=== PATIENT | male | born 1955 | race Caucasian/White ===

== ENCOUNTER → 2022-01-28 13:36 | Outpatient (BNVA) | payer MEDICARE, SELFPAY | PROVIDERS: Family Provider Family Medicine; Visit Provider Nurse Practitioner Family | DX: I96 Gangrene, not elsewhere classified (principal); S81.802A Unspecified open wound, left lower leg, initial encounter; X58.XXXA Exposure to other specified factors, initial encounter | CPT/HCPCS: 97597; 99213 ==

== ENCOUNTER → 2022-02-04 10:20 | Outpatient (BNVA) | payer MEDICARE, SELFPAY | PROVIDERS: Family Provider Family Medicine; Visit Provider Nurse Practitioner Family | DX: I96 Gangrene, not elsewhere classified (principal); L97.822 Non-pressure chronic ulcer of other part of left lower leg with fat layer exposed | CPT/HCPCS: 11042 ==

== ENCOUNTER → 2022-02-11 13:40 | Outpatient (BNVA) | payer MEDICARE, SELFPAY | PROVIDERS: Family Provider Family Medicine; Visit Provider Nurse Practitioner Family | DX: I96 Gangrene, not elsewhere classified (principal); L97.822 Non-pressure chronic ulcer of other part of left lower leg with fat layer exposed | CPT/HCPCS: 11042 ==

== ENCOUNTER → 2022-02-18 13:25 | Outpatient (BNVA) | payer MEDICARE, SELFPAY | PROVIDERS: Family Provider Family Medicine; Visit Provider Thoracic Surgery (Cardiothoracic Vascular Surgery) | DX: I96 Gangrene, not elsewhere classified (principal); L97.822 Non-pressure chronic ulcer of other part of left lower leg with fat layer exposed | CPT/HCPCS: 11042; A6021; A6212 ==

== ENCOUNTER 2022-02-25 01:00 | Outpatient (CLI) | payer MEDICARE, SELFPAY | END 2022-02-25 23:00 | disposition home or self-care (01) | LOC: RAD 03-16 14:58 | PROVIDERS: Family Provider Family Medicine; Visit Provider Physician Assistant | DX: I96 Gangrene, not elsewhere classified (principal); L97.822 Non-pressure chronic ulcer of other part of left lower leg with fat layer exposed | CPT/HCPCS: 11042; A6021 ==

== ENCOUNTER 2022-03-04 06:25 | Outpatient (CLI) | payer MEDICARE, SELFPAY ==
--- NOTE | 2022-03-04 06:45 | CT_ITS ---
WS: [id number] CT CHEST WITHOUT INTRAVENOUS CONTRAST HISTORY: COPD TECHNIQUE: Contiguous 5 mm axial imaging performed on the thorax. Coronal and sagittal reformats are submitted. All CT scans at [facility] use at least one of these dose optimization techniques: automated exposure control; mA and/or kV adjustment per patient size (includes targeted exams where dose is matched to clinical indication); or iterative reconstruction. CONTRAST: None DLP: 799.54 mGy.cm COMPARISON: CT 10/07/2013 Lungs and central airway: No pulmonary mass or nodules. No pneumonia. Pleura: Normal. No pleural effusion. Heart and pericardium: Normal size heart with no pericardial effusion. Mediastinum and lewis: Calcified benign lymph nodes in the mediastinum and hilar regions. Vessels: Mild atherosclerosis aorta. No aneurysm. Normal size pulmonary artery. Chest wall and lower neck: No soft tissue masses. Upper abdomen: Mild perinephric stranding. Mild hyperplasia of the adrenal glands. 8mm nodule RIGHT a drenal gland is probably an adenoma. Similar to the study from 2013. Prior cholecystectomy. Osseous structures: Mild increase in the thoracic kyphosis. Thoracic spondylosis. CT/CT chest wo con [id number] IMPRESSION: 1. No pulmonary mass, pneumonia or nodule. 2. Mild atherosclerosis aorta. 3. Stable small RIGHT adrenal adenoma.
== END 2022-03-04 06:26 | disposition home or self-care (01) ==
LOC: RAD 06:25
PROVIDERS: Family Provider Family Medicine; Visit Provider Physician Assistant
DX: J44.9 Chronic obstructive pulmonary disease, unspecified (principal); S81.812D Laceration without foreign body, left lower leg, subsequent encounter; L08.9 Local infection of the skin and subcutaneous tissue, unspecified; I70.0 Atherosclerosis of aorta; X58.XXXD Exposure to other specified factors, subsequent encounter
CPT/HCPCS: 11042; 71250; A6212

== ENCOUNTER → 2022-03-11 10:17 | Outpatient (BNVA) | payer MEDICARE, SELFPAY | PROVIDERS: Family Provider Family Medicine; Visit Provider Surgery | DX: L97.822 Non-pressure chronic ulcer of other part of left lower leg with fat layer exposed (principal) | CPT/HCPCS: 99212 ==

== ENCOUNTER → 2022-03-19 10:44 | Outpatient (BNVA) | payer MEDICARE, SELFPAY | PROVIDERS: Family Provider Family Medicine; PCP Physician Assistant; Visit Provider Internal Medicine | DX: I49.9 Cardiac arrhythmia, unspecified (principal); I49.1 Atrial premature depolarization; I49.3 Ventricular premature depolarization; I47.1 Supraventricular tachycardia | CPT/HCPCS: 93225 ==

== ENCOUNTER 2022-03-25 10:51 | Outpatient (CLI) | payer MEDICARE, SELFPAY ==
--- NOTE | 2022-03-25 | USCV_ITS ---
Ed Downey Age: 66 Gender: M : 1955 Exam Date: 03/25/2022 11:13 Ordering Phys: Karena Cesar Technologist: Alvin Aceves Exam Location: [facility] [place] Indication: sinus arrhythmia BP: 140 / 60 HR: 90 Rhythm: Other Technical Quality: Adequate MEASUREMENTS (Male / Female) Normal Values 2D ECHO LV Diastolic Diameter PLAX 4.8 cm 4.2 - 5.9 / 3.9 - 5.3 cm LV Systolic Diameter PLAX 3.3 cm IVS Diastolic Thickness 1.1 cm 0.6 - 1.0 / 0.6 - 0.9 cm IVS Systolic Thickness 1.2 cm LVPW Diastolic Thickness 1.2 cm 0.6 - 1.0 / 0.6 - 0.9 cm LVPW Systolic Thickness 1.6 cm LVOT Diameter 2.1 cm LV Ejection Fraction 2D Teich 58.6 % LV Ejection Fraction MOD 2C 59.1 % LV Ejection Fraction 2C AL 58.6 % LA Diameter 3.8 cm LA Width 3.9 cm LA Height 4.5 cm RA Width 4.2 cm RA Height 4.2 cm Aorta at Sinotubular Diameter 2.6 cm IVC Diameter 1.6 cm M-MODE Aortic Annulus Diameter 3.3 cm LA Ao Ratio MM 1.1 MV E Point Septal Separation 0.9 cm DOPPLER AV Peak Velocity 181.7 cm/s LVOT Peak Velocity 96.0 cm/s AV Area Cont Eq vti 2.0 cm squared AV Area Cont Eq pk 1.9 cm squared MV Peak Velocity 114.0 cm/s MV Area PHT 5.0 cm squared Mitral E to A Ratio 0.5 MV E' Velocity 37.0 cm/s Mitral E to LV E' Septal Ratio 7.1 TR Peak Velocity 275.6 cm/s TR Peak Gradient 30.4 mmHg TR Mean Velocity 226.5 cm/s TR Mean Gradient 20.8 mmHg TR Velocity Time Integral 68.9 cm Right Atrial Pressure 3.0 mmHg Pulmonary Artery Systolic Pressu 33.4 mmHg PV Peak Velocity 97.0 cm/s RV Acceleration Time 0.1 s RV Ejection Time 0.3 s RV AcT/ET 0.3 FINDINGS Left Ventricle Normal left ventricular size and systolic function, EF 65 %. No regional wall motion abnormalities. Grade I/IV diastolic dysfunction (abnormal relaxation filling pattern), normal to mildly elevated filling pressures. Right Ventricle Normal size ejection fraction Right Atrium Possibly of normal size Left Atrium Mildly increased left atrial size. Mitral Valve Trace mitral valve regurgitation. Aortic Valve Minimally thickened Tricuspid Valve No gross abnormality noted Pulmonic Valve Pulmonic valve not well visualized. Pericardium Normal pericardium without effusion. Aorta Normal ascending aorta dimension. IVC Inferior vena cava not visualized. CONCLUSIONS Normal left ventricular size and systolic function, EF 65 %. No regional wall motion abnormalities. Grade I/IV diastolic dysfunction (abnormal relaxation filling pattern), normal to mildly elevated filling pressures. Mildly increased left atrial size. Trace mitral valve regurgitation. Minimally thickened aortic valve There is no pericardial effusion. Technically difficult study because of the poor ultrasonic window. (Echo contrast - Optison was used to delineate the endocardium and to estimate the LV ejection fraction) Dr Juancho Jerez MD [facility] (Electronically Signed) Final Date: 25 March 2022 21:06 S
[2022-03-25] MEDS: perflutren protein-a microsphr 0.22 mg/mL SDV 3 mL IV (12:07)
== END 2022-03-25 10:52 | disposition home or self-care (01) ==
LOC: RAD 10:54
PROVIDERS: PCP Physician Assistant; Visit Provider Physician Assistant
DX: I49.8 Other specified cardiac arrhythmias (principal); I08.0 Rheumatic disorders of both mitral and aortic valves
CPT/HCPCS: C8929; Q9956

== ENCOUNTER 2022-05-26 09:21 | Outpatient (CLI) | payer MEDICARE, SELFPAY ==
[2022-05-26 09:48] VITALS: BMI 33.0
--- NOTE | 2022-05-26 09:58 | ECG_ITS ---
[facility] Test Date: 2022-05-26 Pat Name: Ed Downey Department: Room: Gender: Male Bonus Clerk: : 1955 Requested By: Karena Ruth Order Number: [id number] Abraham MD: Juancho Jerez M.D. Interpretive Statements NAME OF STUDY: LEXISCAN SESTAMIBI STRESS TEST INDICATION: Shortness of Breath, PROCEDURE: At the baseline, the EKG revealed normal sinus rhythm with frequent PVCs in the form of bigeminy. Poor R wave progression. Some nonspecific T wave changes. The baseline heart was 70 bpm with a blood pressue of 153/101 mm of Hg Lexiscan was infused over a period of 20 seconds. A total of 0.4 milligrams of Lexiscan was infused. The stress phase was continued for a total of 5 minutes. Heart rate at the end of the stress phase was 90 bpm with a blood pressure 133/74 mm of Hg. The EKG at the peak infusion revealed no significant changes except for the less frequent PVCs. Sestamibi was injected 20 seconds after the Lexiscan infusion. Heart rate at the end of the recovery phase was 85 bpm with a blood pressure of 145/82 mm of Hg. CONCLUSION: 1. Nonspecific EKG changes with the LexiScan infusion 2. No LexiScan induced chest pain or cardiac arrhythmia 3. Normal blood pressure and heart rate response 4. Sestamibi/sestamibi perfusion scan pending; see separate report. Electronically Signed On 05-26-2022 15:48:20 CDT by Juancho Jerez M.D. [id number]
--- NOTE | 2022-05-26 09:58 | NMCV_ITS ---
NM genia perf SPECT r/s* [id number] Ed Downey Age: 66 Gender: M : 1955 Exam Date: 05/26/2022 10:34 Ordering Phys: Karena Cesar Technologist: JOSE ANGEL Gonzalez Exam Location: [facility] Indications: SHORTNESS OF BREATH STRESS TEST [facility] IMAGE PROTOCOL Rest/Stress 1 Lexiscan Day Radiopharmaceutical Dose (mCi) Administration Site Administered by Rest: Tc-99m 11.0 IV JOSE ANGEL Avery Sestamibi Stress:Tc-99m 32.4 IV JOSE ANGEL Avery Sestamibi Rest: 26-May-2022 60 Discovery 630 Stress: 26-May-2022 30 Discovery 630 0.4mg Lexiscan. Images obtained in supine and prone position. SPECT RESULTS Technical Quality: Excellent Raw Data Analysis: Normal Image Corrections: No attenuation or motion correction applied Summed Stress Score: 3 Summed Rest Score: 2 Summed Difference Score: 1 PERFUSION FINDINGS Small to moderate area of slightly decreased tracer uptake was noted in the inferior wall with no significant reversibility. Small area of slightly decreased tracer uptake was noted in the apical anterior wall region with some reversibility FUNCTIONAL RESULTS (calculated via Gated SPECT) Stress Image LV EF (%): 54 Stress EDV (mL):128 TID: 0.94 Stress ESV (mL):59 FUNCTIONAL FINDINGS: Segmental wall motion analysis revealing no gross wall motion abnormalities IMPRESSIONS 1. Myocardial perfusion imaging revealing small to moderate area of persistent decreased tracer uptake in the inferior wall region suggesting myocardial scarring versus attenuation artifact. Small area of possible defect in the apical anterior region, suggesting ischemia in the distribution of the left anterior descending artery. 2. Normal LV ejection fraction of 54%. 3. LV wall motion analysis revealing no gross wall motion abnormalities. 4. Mildly dilated LV cavity, with an end-systolic volume of 59 mm No similar previous studies are available for comparison Dr Juancho Jerez MD FAC (Electronically Signed) Final Date: 26 May 2022 12:44 S
[2022-05-26] MEDS: regadenoson 0.4 Mg/5 ml Syringe IVP (11:09)
[2022-05-26 11:20] VITALS: BP 145/82; PULSE 87
== END 2022-05-26 09:22 | disposition home or self-care (01) ==
PROVIDERS: PCP Physician Assistant; Visit Provider Physician Assistant
DX: R06.09 Other forms of dyspnea (principal); R06.02 Shortness of breath
CPT/HCPCS: 36415; 78452; 93017; 96374; A9500; J2785

== ENCOUNTER 2022-06-15 06:32 | Outpatient (CLI) | payer MEDICARE, SELFPAY ==
--- NOTE | 2022-06-15 | US_ITS ---
WS: [id number] RIGHT UPPER QUADRANT ULTRASOUND HISTORY: INCREASED LIVER ENZYMES COMPARISON: 10/04/2013 Liver: 14.7 cm in length. Normal size liver. Coarsened echotexture from hepatic steatosis. Similar to the prior study. No mass or bile duct dilatation. Portal Vein: Normal hepatopetal flow with monophasic waveform. Gallbladder: Status post cholecystectomy. CBD: 0.5 cm Pancreas: Normal size and echogenicity. Right kidney: 11.5 cm in length. Normal size and echogenicity. No hydronephrosis or mass. Aorta and IVC: Unremarkable abdominal aorta and IVC. No ascites. US/US abdomen limited [id number] IMPRESSION: 1. Prior cholecystectomy. 2. No bile duct dilatation. 3. Normal size liver with hepatic steatosis. Unchanged since 2013.
--- NOTE | 2022-06-15 06:53 | USCV_ITS ---
Ed Downey Age: 66 Gender: M : 1955 Exam Date: 06/15/2022 07:11 Ordering Phys: Karena Cesar Technologist: Exam Location: [facility] [place]_ Indication: lis Aortic Velocity @ SMA (cm/s) 77 RIGHT KIDNEY LEFT KIDNEY Velocity (cm/s) Velocity (cm/s) Sys/Perez Sys/Perez Resistive Index Resistive Index 94.0 / 34.4 0.62 Proximal Renal Artery 60.5 / 21.8 0.64 147.2 / 49.1 0.67 Mid Renal Artery 129.7 / 39.9 0.69 125.7 / 41.9 0.67 Distal Renal Artery 53.9 / 20.0 0.63 109.6 / 33.6 0.68 Hilar 48.4 / 16.7 0.66 56.8 / 23.1 0.59 Upper Pole 49.2 / 17.4 0.65 38.8 / 14.6 0.62 Mid Pole 36.6 / 12.5 0.66 64.1 / 20.7 0.68 Lower Pole 30.0 / 10.6 0.65 1.90 Renal Aortic Ratio 1.68 Accleration Index (cm/sec2) 1240.0 Hilar 295.00 0 452.00 Upper Pole 489.00 397.00 Mid Pole 548.00 573.00 Lower Pole 606.00 113.4 Kidney Length (mm) 124.0 FINDINGS No comparison. No evidence of abdominal aortic aneurysm. There is no evidence of hemodynamically significant left renal artery stenosis. There is no evidence of hemodynamically significant right renal artery stenosis. Normal size kidneys. CONCLUSIONS There is no sonographic evidence of hemodynamically significant renal artery stenosis bilaterally. Dr. Carmen Oakley DO (Electronically Signed) Final Date: 15 June 2022 09:37 S
== END 2022-06-15 06:33 | disposition home or self-care (01) ==
LOC: RAD 06:35
PROVIDERS: PCP Physician Assistant; Visit Provider Physician Assistant
DX: Q27.1 Congenital renal artery stenosis (principal)
CPT/HCPCS: 76705; 93975

== ENCOUNTER → 2022-07-16 15:48 | Outpatient (BNVA) | payer MEDICARE, SELFPAY | PROVIDERS: PCP Physician Assistant; Visit Provider Internal Medicine Pulmonary Disease | DX: J44.9 Chronic obstructive pulmonary disease, unspecified (principal); J30.2 Other seasonal allergic rhinitis; G47.33 Obstructive sleep apnea (adult) (pediatric); Z99.89 Dependence on other enabling machines and devices; F41.9 Anxiety disorder, unspecified | CPT/HCPCS: 36415; 82785; 85025; 86003; 99204 ==

== ENCOUNTER → 2022-07-27 14:25 | Outpatient (BNVA) | payer MEDICARE, SELFPAY | PROVIDERS: PCP Physician Assistant; Visit Provider Internal Medicine Cardiovascular Disease | DX: R94.39 Abnormal result of other cardiovascular function study (principal); R06.02 Shortness of breath; R53.83 Other fatigue; E78.5 Hyperlipidemia, unspecified; I49.8 Other specified cardiac arrhythmias | CPT/HCPCS: 99205 ==

== ENCOUNTER 2022-08-05 12:33 | Outpatient (CLI) | payer MEDICARE, SELFPAY ==
[2022-08-05 12:57] VITALS: PULSE 94; RESP 18; O2SAT 98
[2022-08-05] MEDS: albuterol 2.5 mg/3 mL Neb INHALATION (12:57)
[2022-08-05 13:02] VITALS: PULSE 87
== END 2022-08-05 12:34 | disposition home or self-care (01) ==
LOC: RT 12:35
PROVIDERS: PCP Physician Assistant; Visit Provider Internal Medicine Pulmonary Disease
DX: J44.9 Chronic obstructive pulmonary disease, unspecified (principal)
CPT/HCPCS: 94060; 94618; 94726; 94729; J7613

== ENCOUNTER 2022-09-01 09:50 | Outpatient (CLI) | payer MEDICARE, SELFPAY ==
[2022-09-01 10:19] LABS: Basophils % 0.2 %; Eosinophils # 0.1 10^3/uL (0.0-0.8); Eosinophils % 1.5 %; Hematocrit 41.4 % (42.0-52.0); Hemoglobin 14.2 g/dL (11.7-16.6); Lymphocytes # 1.9 10^3/uL (0.8-4.8); Lymphocytes % 20.5 %; Mean Corpuscular HGB Conc 34.3 g/dL (30.0-36.0); Mean Corpuscular Hemoglobin 34.1 pg (28.0-34.0); Mean Corpuscular Volume 99.5 fl (80-94); Mean Platelet Volume 9.4 fL (7.4-10.4); Monocytes # 0.6 10^3/uL (0.2-0.9); Monocytes % 6.1 %; Neutrophils # 6.63 10^3/uL (1.8-7.7); Neutrophils % 71.4 %; Nucleated Red Blood Cells % 0 %; Platelet Count 189 10^3/cmm (130-400); Red Blood Count 4.16 10^6/uL (4.1-5.3); Red Cell Distribution Width 13.5 % (12.1-15.1); White Blood Count 9.3 10^3/uL (4.0-10.0)
[2022-09-01 10:29] LABS: INR 0.93 (0.83-1.21); Prothrombin Time (Patient) 12.8 Seconds (12.0-15.1)
[2022-09-01 10:38] LABS: Anion Gap 14.1 (5-19); Blood Urea Nitrogen 20 mg/dL (8-23); Calcium 8.9 mg/dL (8.5-10.5); Carbon Dioxide 22 mmol/L (22-29); Chloride 106 mmol/L (98-107); Glomerular Filtration Rate 66.6 mL/min (90-130); Glucose 111 mg/dL (65-115); Osmolality Calculated 289 mOsm/kg (285-295); Potassium 4.1 mmol/L (3.5-5.1); Sodium 138 mmol/L (136-145)
[2022-09-01 11:23] LABS: NT Pro B Type Natriuretic Pept 395 pg/mL (0-125)
== END 2022-09-01 09:51 | disposition home or self-care (01) ==
PROVIDERS: PCP Physician Assistant; Visit Provider Internal Medicine Cardiovascular Disease
DX: R94.39 Abnormal result of other cardiovascular function study (principal); I49.9 Cardiac arrhythmia, unspecified; I10 Essential (primary) hypertension
CPT/HCPCS: 36415; 80048; 83880; 85025; 85610; 86850; 86900

== ENCOUNTER 2022-09-07 05:57 | Outpatient (CLI) | payer MEDICARE, SELFPAY ==
[2022-09-04 10:10] VITALS: BMI 34.5
[2022-09-07] VITALS (7 sets, daily range): BP systolic 130–132; BP diastolic 73–80; PULSE 68–71; RESP 15–18; TEMP 36.6; O2SAT 94–99
[2022-09-07] MEDS: diphenhydrAMINE 50 mg Capsule PO (06:44)
--- NOTE | 2022-09-07 07:00 | XACV_ITS ---
Exam Room: 2 Ht: 185 cm Wt: 119 kg BSA: 2.51 m2 Gender: Male : 1955 Any Known Allergies: Penicillins Exam Priority: Routine Procedure(s): Procedure Description: Diagnostic procedure Procedure Description: Left Heart Catheterization Procedure Description: Left ventriculography Procedure Description: Coronary Angiography Solitario OTOOLE; Diagnostic Cath Status: Elective Diagnostic Findings * The left main is a medium caliber vessel with no significant stenotic lesions. * The left anterior descending artery is a medium caliber vessel which appears to taper off to reduce the LV apex. Mild diffuse ectasia was noted in the proximal segment of the arteries. 20 to 30% diffuse irregular narrowing was noted in the proximal to mid segment. No significant stenotic lesions were noted. * The left circumflex artery is a medium caliber vessel which also was found to have mild diffuse ectasia proximally. Minimal intimal irregularities were noted in the proximal and mid segment of the artery. No significant stenotic lesions. * The right coronary artery is a medium to large caliber ectatic vessel with mild diffuse intimal irregularities. No significant stenotic lesions were noted. Conclusions 1. This 66-year-old white male with history of hypertension and dyslipidemia, is presenting with increasing shortness of breath with exertion. He was found to have frequent ventricular arrhythmias on the event monitor. The Myocardial perfusion imaging revealed some areas of fixed and reversible defects. In order to better evaluate the coronary status, in view of his worsening of symptoms, a cardiac catheterization was recommended. Patient also is known to have COPD/obstructive sleep apnea. He underwent left heart catheterization with left and right coronary angiogram and LV angiogram today. The findings are as follows. 2. 1. Mild diffuse coronary artery disease. #2 LV ejection fraction 50% by LV angiogram. #3 LVEDP of 12 mmHg. 3. Based on the angiogram findings, it was decided to treat him medically. Patient was transferred to the medical floor in stable condition. Diagnostic RX Recommendation: medical therapy and/or counseling LV EDP: 12 mmHg Ventriculography Ejection Fraction: 50.0 % Left Ventriculography Findings: * The LV gram was performed in the HERRMANN projection. The LV cavity appears to be of normal size. Overall LV ejection fraction was around 50%. No significant mitral valve prolapse or mitral regurgitation. No filling defects were noted. Pressures Phase:Rest AO : 146 / 84 ( 110 ) @ 8:19:00 AM 137 / 78 ( 104 ) @ 8:24:00 AM 136 / 67 ( 99 ) @ 8:29:00 AM 133 / 61 ( 93 ) @ 8:29:00 AM LV : 129 / -13 / 12 @ 8:28:00 AM 128 / -11 / 14 @ 8:29:00 AM 129 / -13 / 14 @ 8:29:00 AM Valves Phase:DefaultPhase AV : 0.0 @ 7:55:49 AM 0.0 @ 7:55:49 AM AV Mean Gradient: 0.0 @ 7:55:49 AM 0.0 @ 7:55:49 AM Clinical Evaluation EBL: 5mL-10mL Procedural Details Procedure Consent Obtained. Admit Source: Out Patient. Pre-Procedure Time Out. Identified patient by full name and date of as verbalized by the patient/guarantor. Does the consent match the physician's order: Yes. Accurate & Complete Informed Consent: Yes. Inpatient/Outpatient History & Physical on Chart: Yes. If H&P is completed, is and addenduem needed: No; If yes, is the addendum complete: N/A. Visualize and Verify Site with Patient/Guarantor: N/A. Relevant Radiology Images available: Yes. The risks, benefits, and alternatives of sedation and/or procedure were discussed by physician. The patient agrees to continue. Procedure started. [facility] Clinical Fraility Score: 3: Managing Well. Commercial Sales Consultant Indications: Worsening Angina. Chest Pain Symptom Assessment: Typical Angina Symptoms. Correct patient, site and procedure confirmed by cath team. Current diagnosis: Chest Pain, Abnormal stress test. PERRLA. Strong, equal hand cold roll inspector bilaterally. Lungs clear x 5 lobes. IV Site on Arrival: 20 gauge in the left anticubital. IV Fluids: 0.9% NaCl at 75ml/hr. 0 mL infused prior to crime laboratory analyst. Pre Procedural Pulses: right dorsalis pedis was 1+. Pre Procedural Pulses: left dorsalis pedis was Doppled. Pre Procedural Pulses: bilateral posterior tibial was 1+. Oxygen started at 2liters/min via nasal canula. bilateral groins was prepped with chloroprep then draped in the usual sterile fashion. Baseline sample Acquired. HR: 74 BPM. Physician notified. Physician arrived. Physician scrubbed in. Immediate Pre-Procedure Time Out. Correct Patient: Yes; Correct Procedure: Yes; Correct Site: Yes; Correct Patient Position: Yes; Correct Supplies: Yes; Dried Flammable Prep: Yes; Blood Products Available: No;. Lidocaine 1% infiltrated to the right groin. Arterial access obtained with micropuncture set. A 5 rwandan JL4 catheter in over wire. Multiple views taken of left coronary artery. Catheter removed over the standard wire. A 5 rwandan JR4 catheter in over wire. Multiple views taken of right coronary artery. Catheter removed over the standard wire. A 5 rwandan Angled Pig catheter in over wire. LV gram performed in HERRMANN @ 10 mL/second for a total of 30 mL. EDP Sample taken: LV 128/-12,14; HR: 75 BPM; SpO2: 96%. Pullback taken: LV 129/-14,14; AO 136/67(99); Mean: 0mmHg, Peak to Peak: 0mmHg, SEP: 8sec/min; HR: 74 BPM; SpO2: 98%. Catheter removed over the standard wire. Physician scrubbed out. Physician review of cine films. Post Procedure: Pulses reassessed and unchanged. PERRLA. Strong, equal hand cold roll inspector bilaterally. Medication's Wasted: Heparin = 2500 units. Medication's Wasted: Other = Fentanyl 25 mcg. Total IV fluids: 33 mL. Post-op diagnosis: Mild CAD, Ventricular Arrythmia. Complications: None. Estimated blood loss: 5mL-10mL. Responsiveness - Normal response to verbal stimuli; alert and oriented, PERRLA. Airway - Unaffected, no intervention required; spontaneous ventilation. Circulation: W/N/L, pulses unchanged. Nausea/Vomiting: No. A Manual Compression was successful obtaining hemostatsis at the Right Femoral artery insertion site. Sheath(s) removed and manual pressure held until hemostasis was achieved. Sterile 4x4 and Op-site applied to the puncture site. No oozing or hematoma noted. Post sheath removal instructions were given and the patient verbalized understanding. Procedure completed. Patient transferred by bed to CPRU. Vital chart was stopped. Access Site Site: Right Femoral artery Sheath Size: 5 Fr Hemostasis Method: Manual Compression Hemostasis Success: Successful Procedure Medications Start: 7:08 AM Stop: 7:08 AM Medication: Versed Amount: 1 mg Route: I.V. Start: 7:08 AM Stop: 7:08 AM Medication: Fentanyl Amount: 50 mcg Route: I.V. Start: 7:13 AM Stop: 7:13 AM Medication: Versed Amount: 1 mg Route: I.V. Start: 7:18 AM Stop: 7:18 AM Medication: Heparin Amount: 1500 units Route: I.V. Start: 7:31 AM Stop: 7:31 AM Medication: Fentanyl Amount: 25 mcg Route: I.V. I, the attending physician, have reviewed and verified all procedure medications. Yes, all medications given per verbal order History/Risk Factors Hypertension: Yes Dyslipidemia: Yes Peripheral Arterial Disease (PAD): No Myocardial Infarction (NC): No Obesity: Yes Renal Disease: No Prior Interventions PCI: No CABG: No Valve Surgery: No Report Signatures Finalized by Dr Juancho Jerez MD [facility] on 09/07/2022 09:55 AM
--- NOTE | 2022-09-07 07:02 | P.HP_ITS ---
Providers/Chief Complaint Primary Care Provider: Karena Cesar Chief Complaint: Shortness of breath/ventricular arrhythmia/possibl History of Present Illness Ed Downey is a 66 year old male with a history of hypertension and dyslipidemia is presenting with increasing shortness of breath. He was found to have frequent ventricular arrhythmia on the monitor. He also had abnormal Myocardial perfusion imaging revealing small areas of reversible defects suggesting myocardial scarring with possible areas of erik-infarction ischemia. In view of his increasing shortness of breath and easy fatigability, in order to further evaluate his coronary status, a cardiac catheterization was recommended. Review of Systems Narrative: CONSTITUTIONAL: No fever or chills. EYES: No blurring of vision or other visual disturbances lately. ENT: No hoarseness of voice, auditory disturbances or sore throat. CARDIOVASCULAR: As mentioned above. RESPIRATORY: Increasing shortness of breath as mentioned above GASTROINTESTINAL: No hematemesis or melena. GENITOURINARY: No dysuria or hematuria. INTEGUMENTARY: No skin rashes or history of skin cancer. NEURO: No transient ischemic attacks or amaurosis. PSYCHIATRIC: No history of psychosis or major depression. HEMATOLOGIC: No bleeding disorders or significant anemia. ENDOCRINE: No history of polyuria or polydipsia. MUSCULOSKELETAL: No recent joint pain or swelling. ALLERGY/IMMUNOLOGY: As mentioned above. Medications/Allergies Home Medications Medication Instructions Recorded Confirmed Last Taken Type amlodipine 10 mg tablet (Norvasc) 10 mg PO DAILY 02/19/22 09/04/22 09/07/22 05:00 History esomeprazole magnesium 20 mg 20 mg PO DAILY 02/19/22 09/04/22 Unknown History capsule,delayed release (Nexium 24HR) losartan 100 1 tab PO DAILY 02/19/22 09/04/22 09/07/22 05:00 History mg-hydrochlorothiazide 25 mg tablet metoprolol succinate 50 mg 50 mg PO DAILY 02/19/22 09/04/22 09/07/22 05:00 History tablet,extended release 24 hr multivitamin 1 tab PO DAILY 02/19/22 09/04/22 09/06/22 History albuterol sulfate 90 mcg/actuation 2 puff inhalation Q6H PRN 07/16/22 09/04/22 Unknown Rx aerosol inhaler shortness of breath or wheezing #8.5 grams clonidine HCl 0.2 mg tablet 0.2 mg PO BID 07/16/22 09/04/22 Unknown History fluticasone 500 mcg-salmeterol 50 1 inh inhalation BID #60 ea 07/16/22 09/04/22 Unknown Rx mcg/dose blistr powdr for inhalation (Advair Diskus) potassium chloride 20 mEq 20 meq PO DAILY 07/16/22 09/04/22 09/07/22 05:00 History tablet,extended release rosuvastatin 20 mg tablet 20 mg PO DAILY 07/16/22 09/04/22 09/07/22 05:00 History tiotropium bromide 18 mcg capsule 1 cap inhalation DAILY #30 07/16/22 09/04/22 Unknown Rx with inhalation device (Spiriva inhalations with HandiHaler) aspirin 81 mg capsule 81 mg PO DAILY 09/07/22 09/07/22 09/07/22 05:00 History Allergies Allergy/AdvReac Type Severity Reaction Status Date / Time Penicillins Allergy Severe swelling Verified 09/04/22 06:57 morphine Allergy unknown Verified 09/04/22 06:57 Vitals/I&O/Wt Last Vital Signs Temp 97.8 F 09/07/22 06:36 Pulse 70 09/07/22 06:36 Resp 16 09/07/22 06:36 BP 130/80 09/07/22 06:36 Pulse Ox 94 09/07/22 06:36 O2 Del Method Room Air 09/07/22 06:36 Physical Exam Narrative: GENERAL: The patient is alert and oriented times three. Not in any acute distress. HEENT: No significant pallor, icterus or lymphadenopathy.Oral cavity: There are no mucous membrane lesions. NECK: Trachea appears to be central. No masses noted. No JVD or thyromegaly appreciated. RESPIRATORY: Chest is symmetrical. No intercostals muscle retraction or any accessory muscle activation. There is no chest wall tenderness. Breath sounds are heard bilaterally. No rales or rhonchi heard. No evidence of any consolidation. BREASTS: Deferred. HEART: The heart sounds are normal. No S3 or S4. No significant murmurs. No pericardial rub ABDOMEN: No vessel pulsations or distention. No tenderness. No organomegaly appreciated. Bowel sounds are normally heard. : Deferred. RECTAL: Deferred. LYMPHATIC: No lymphadenopathy noted in the neck. EXTREMITIES: No edema or cyanosis. No clubbing. MUSCULOSKELETAL: No acute joint deformities or swelling SKIN: There are no significant rashes or ecchymosis NEUROPSYCHIATRIC: The patient is alert and oriented x3. Appears to be in a good mood. No tremors or rigidity noted. GENERAL: The patient is alert and oriented times three. Not in any acute distress. A&P Assessment and plan (1) Dyslipidemia: (2) Fatigue: (3) SOB (shortness of breath): (4) Ventricular arrhythmia: (5) Abnormal cardiovascular stress test: (6) MANDO on CPAP: (7) COPD (chronic obstructive pulmonary disease): Plan The patient is scheduled for the cardiac catheterization today. Patient angiogram findings, further recommendations will be made. The risk of bleeding, hematoma, vascular injury, myocardial infarction, myocardial perforation, malignant cardiac arrhythmias ,CVA, renal failure and other concomitant complications were explained in detail. Patient understood this well and consented to proceed Attestations Medical Necessity Statement*: possible 1 midnight stay Coding Level of Care Code Acute Code for [facility] Fwd Diagnoses Dyslipidemia E78.5 Fatigue R53.83 SOB (shortness of breath) R06.02 Ventricular arrhythmia I49.9 Abnormal cardiovascular stress test R94.39 MANDO on CPAP G47.33; Z99.89 COPD (chronic obstructive pulmonary disease) J44.9
--- NOTE | 2022-09-07 08:31 | PC.NURSE ---
cpru nurse received pt around 0800. laboratory operations coordinator team held pressure with no hematoma or swelling noted. pt complains of no pain. pt alert and oriented x4. pt educated on restrictions of right leg and stated understanding. pt to recover in cpru for approximately 30 mins in cpru and then will recovery in csu until discharge. pt placed on monitor and will be monitored per protocol.
[2022-09-07] MEDS: magnesium lactate 84 mg Tablet PO ×2 (13:46→18:39)
[2022-09-07] MEDS: multivitamin therapeutic Tablet 1 TAB PO (13:47)
[2022-09-07] MEDS: pantoprazole DR 40 mg Tablet PO (13:47)
[2022-09-07] MEDS: potassium chloride ER 20 mEq Tablet PO (13:48)
[2022-09-07] MEDS: ipratropium-albuterol 3 mL Neb INHALATION (15:03)
== END 2022-09-07 18:49 | disposition home or self-care (01) ==
LOC: CCL 07:03 → CSU 09:03
PROVIDERS: PCP Physician Assistant; Visit Provider Internal Medicine Cardiovascular Disease
DX: R06.02 Shortness of breath (principal); E78.5 Hyperlipidemia, unspecified; I49.9 Cardiac arrhythmia, unspecified; R94.39 Abnormal result of other cardiovascular function study; Z79.82 Long term (current) use of aspirin; R53.83 Other fatigue; G47.33 Obstructive sleep apnea (adult) (pediatric); Z99.89 Dependence on other enabling machines and devices; J44.9 Chronic obstructive pulmonary disease, unspecified; I25.10 Atherosclerotic heart disease of native coronary artery without angina pectoris; I10 Essential (primary) hypertension
CPT/HCPCS: 36415; 93458; 94640; 96361; 96365; 99152; 99153; C1769; C1887; C1894; J1644; J2250; J3010; J7030; Q0163; Q9967

== ENCOUNTER → 2022-09-17 11:06 | Outpatient (BNVA) | payer MEDICARE, SELFPAY | PROVIDERS: PCP Physician Assistant; Visit Provider Internal Medicine Pulmonary Disease | DX: R06.02 Shortness of breath (principal); F17.210 Nicotine dependence, cigarettes, uncomplicated; J44.9 Chronic obstructive pulmonary disease, unspecified; G47.33 Obstructive sleep apnea (adult) (pediatric); Z99.89 Dependence on other enabling machines and devices; J30.2 Other seasonal allergic rhinitis; I49.9 Cardiac arrhythmia, unspecified | CPT/HCPCS: 99214 ==

== ENCOUNTER → 2022-09-21 13:04 | Outpatient (BNVA) | payer MEDICARE, SELFPAY | PROVIDERS: PCP Physician Assistant; Visit Provider Nurse Practitioner Family | DX: I25.10 Atherosclerotic heart disease of native coronary artery without angina pectoris (principal); F17.210 Nicotine dependence, cigarettes, uncomplicated; Z79.82 Long term (current) use of aspirin | CPT/HCPCS: 36415; 80048; 99214 ==

== ENCOUNTER 2023-02-15 09:41 | Outpatient (CLI) | payer MEDICARE, SELFPAY ==
--- NOTE | 2023-02-15 10:00 | CT_ITS ---
WS: [id number] LDCT LUNG CANCER SCREENING TECHNIQUE: Noncontrast CT of the chest with coronal and sagittal reformatted images. CLINICAL INFORMATION: Cancer screen COMPARISON: CT chest 03/04/2022 DLP: 127.41 mGy.cm DIvol: Mean CTDIvol: 2.70 (mGy) All CT scans at [facility] use at least one of these dose optimization techniques: automat ed exposure control; mA and/or kV adjustment per patient size (includes targeted exams where dose is matched to clinical indication); or iterative reconstruction. FINDINGS: Tiny noncalcified nodule RIGHT upper lobe. Prominent RIGHT parabronchial lymph node measuring 10 mm unchanged. Aortic calcification. Calcified L EFT hilar and subcarinal lymph nodes. No axillary lymphadenopathy. Small RIGHT adrenal adenoma unchan ged. LEFT adrenal gland is normal. Small esophageal hiatal hernia. Cholecystectomy clips. A few tiny calcified granulomas. Hypertrophic changes thoracic spine. Mild thoracic curve and kyphosis. IMPRESSION: CT/CT lung screening [id number] LUNG-RADS: 2-Benign Appearance or Behavior FOLLOW UP: 12 Month: Continue annual screening with LDCT
== END 2023-02-15 09:42 | disposition home or self-care (01) ==
LOC: RAD 09:41
PROVIDERS: PCP Physician Assistant; Visit Provider Internal Medicine Pulmonary Disease
DX: Z12.2 Encounter for screening for malignant neoplasm of respiratory organs (principal); F17.210 Nicotine dependence, cigarettes, uncomplicated
CPT/HCPCS: 71271

== ENCOUNTER 2024-12-18 07:03 | Outpatient (CLI) | payer MEDICARE, SELFPAY ==
--- NOTE | 2024-12-18 07:11 | CT_ITS ---
WS: [id number] LDCT LUNG CANCER SCREENING HISTORY: NICOTINE DEPENDENCE,CIGARETTES TECHNIQUE: Axial imaging performed from the apices to 1 cm below the costophrenic angles. Coronal and sagittal reformats are submitted with axial MIP series. All CT scans at [facility] use at least one of these dose optimization techniques: automated exposure control; mA and/or kV adjustment per patient size (includes targeted exams where dose is matched to clinical indication); or iterative reconstruction. DLP: 110.59 mGy.cm DIvol: Mean CTDIvol: 2.40 (mGy) COMPARISON: 02/15/2023 Diagnostic quality: Satisfactory Lungs: Moderate pulmonary hyperinflation. 2 mm nodule RIGHT upper lobe is stable. 2 mm nodule along the RIGHT minor fissure. There are a few very tiny micronodules in the periphery of the lungs. Dependent changes and very mild thin bandlike atelectasis in the lower lung foy. No endobronchial lesions. Heart: Normal size heart with no pericardial effusion.. Other findings: Stable high RIGHT paratracheal lymph node at 17 mm. Mild atherosclerosis aorta. Additional calcified lymph nodes subcarina. Small hiatal hernia. 2. Very small nodules in the RIGHT adrenal gland. 1 of these does contain fat and may be an myelolipoma. No change since 10/07/2013. Normal LEFT adrenal gland. Prior cholecystectomy. CT/CT lung screening [id number] IMPRESSION: LUNG-RADS: 2-Benign Appearance or Behavior FOLLOW UP: 12 Month: Continue annual screening with LDCT OTHER FINDINGS (S MODIFIER): None.
== END 2024-12-18 07:04 | disposition home or self-care (01) ==
LOC: RAD 07:06
PROVIDERS: PCP Physician Assistant; Visit Provider Physician Assistant
DX: Z12.2 Encounter for screening for malignant neoplasm of respiratory organs (principal); F17.210 Nicotine dependence, cigarettes, uncomplicated; I70.0 Atherosclerosis of aorta; K44.9 Diaphragmatic hernia without obstruction or gangrene; Z90.49 Acquired absence of other specified parts of digestive tract; J98.11 Atelectasis; R59.0 Localized enlarged lymph nodes; E27.9 Disorder of adrenal gland, unspecified
CPT/HCPCS: 71271